=== PATIENT | female | born 1960 ===

== ENCOUNTER 2024-07-02 15:41 | Emergency (ER) | payer MEDICARE ==
[2024-07-02] MEDS: Lidocaine 4% Patch TOP STA (17:15)
== END 2024-07-02 17:22 | disposition home or self-care (01) ==
LOC: MW.ED 15:41
DX: S49.92XA Unspecified injury of left shoulder and upper arm, initial encounter (principal); I10 Essential (primary) hypertension; E78.00 Pure hypercholesterolemia, unspecified; Z75.8 Other problems related to medical facilities and other health care; Z79.899 Other long term (current) drug therapy; W19.XXXA Unspecified fall, initial encounter
CPT/HCPCS: 73030; 99283; A9270